=== PATIENT | female | born 1950 ===

== ENCOUNTER 2017-11-21 11:21 | Outpatient (CLI) | payer OTHER | END 2017-11-21 12:15 | disposition home or self-care (01) | LOC: TOM 11:21 | DX: J43.2 Centrilobular emphysema (principal); R06.02 Shortness of breath; Z72.0 Tobacco use ==

== ENCOUNTER → 2018-07-08 | Outpatient (CLI) | payer OTHER ==
[~2018-07-08] VITALS: Ht 160 cm; Wt 46.3 kg
== END | disposition home or self-care (01) ==
LOC: OFIC 805 11:44
DX: R22.1 Localized swelling, mass and lump, neck (principal); L29.9 Pruritus, unspecified; H61.23 Impacted cerumen, bilateral

== ENCOUNTER 2019-07-24 18:48 | Emergency (ER) | payer OTHER ==
[~2019-07-24] VITALS: Ht 157.5 cm; Wt 49.4 kg
[2019-07-24] MEDS ORDERED: ZOLOFT50 MG (19:14)
[2019-07-24] MEDS ORDERED: METOPROLOL SUCC25 MG (19:14)
[2019-07-24] MEDS ORDERED: ASPIR 8181 MG (19:15)
[2019-07-24] MEDS ORDERED: AUBAGIO14 MG (19:15)
== END 2019-07-24 22:13 | disposition home or self-care (01) ==
LOC: ER 18:48
DX: I16.0 Hypertensive urgency (principal); I10 Essential (primary) hypertension; M54.89 Other dorsalgia

== ENCOUNTER → 2019-07-25 | Emergency (ER) | payer OTHER ==
[~2019-07-25] VITALS: Ht 157.5 cm; Wt 49.4 kg
[~2019-07-25] MED LIST: ASPIR 8181 MG; AUBAGIO14 MG; METOPROLOL SUCC25 MG; ZOLOFT50 MG
== END | disposition left against medical advice (07) ==
LOC: ER 23:14
DX: Z53.20 Procedure and treatment not carried out because of patient's decision for unspecified reasons (principal)